=== PATIENT | male | born 1955 | race Native Hawaiian/Other Pacific Islander ===

== ENCOUNTER 2017-01-26 14:40 | Outpatient (CLI) | payer BC | END 2017-01-26 19:16 | disposition home or self-care (01) | LOC: CT 14:40 | DX: R06.00 Dyspnea, unspecified (principal); J45.909 Unspecified asthma, uncomplicated ==

== ENCOUNTER 2017-05-27 09:24 | Outpatient (CLI) | payer BC | END 2017-05-27 19:09 | disposition home or self-care (01) | LOC: LABW 09:24 | PROVIDERS: Internal Medicine Cardiovascular Disease | DX: E78.2 Mixed hyperlipidemia (principal) | CPT/HCPCS: 36415; 80061; 80076 ==

== ENCOUNTER 2017-07-05 08:26 | Day surgery (SDC) | payer BC ==
[2017-07-05 08:56] LABS: PLATELET COUNT 282 K/uL (142-355)
[2017-07-05 09:32] LABS: POTASSIUM 4.4 mmol/L (3.6-5.2); SODIUM 138 mmol/L (136-145)
== END 2017-07-05 15:10 | disposition home or self-care (01) ==
LOC: OR 08:26
PROVIDERS: Student in an Organized Health Care Education/Training Program
PROC: 0YU60JZ Supplement Left Inguinal Region with Synthetic Substitute, Open Approach (ICD-10-PCS; principal; 2017-07-05)
DX: K40.90 Unilateral inguinal hernia, without obstruction or gangrene, not specified as recurrent (principal)
CPT/HCPCS: 80053; 85027; C1729; C1781; J0132; J0330; J0690; J1100; J1170; J2001; J2250; J2405; J2704; J2710; J2765; J3010; J3490; S0028

== ENCOUNTER 2017-08-18 09:32 | Outpatient (CLI) | payer BC | END 2017-08-18 19:22 | disposition home or self-care (01) | LOC: LABW 09:32 | DX: J45.50 Severe persistent asthma, uncomplicated (principal) | CPT/HCPCS: 36415; 82785; 86003 ==

== ENCOUNTER 2017-08-23 07:35 | Day surgery (SDC) | payer BC ==
[2017-08-18 11:36] LABS: PLATELET COUNT 230 K/uL (142-355)
[2017-08-18 11:42] LABS: POTASSIUM 4.2 mmol/L (3.6-5.2); SODIUM 138 mmol/L (136-145)
== END 2017-08-23 10:00 | disposition home or self-care (01) ==
LOC: OR 07:35
PROVIDERS: Student in an Organized Health Care Education/Training Program
PROC: 0DB68ZZ Excision of Stomach, Via Natural or Artificial Opening Endoscopic (ICD-10-PCS; principal; 2017-08-23)
DX: K29.50 Unspecified chronic gastritis without bleeding (principal); K21.9 Gastro-esophageal reflux disease without esophagitis
CPT/HCPCS: 36415; 80053; 85027; J2001; J2250; J2704; J3010; J3490